=== PATIENT | female | born 1990 | race Caucasian/White ===

== ENCOUNTER 2017-04-06 15:12 | Emergency (ER) | payer SELFPAY ==
[~2017-04-06] VITALS: Ht 149.9 cm; Wt 38.6 kg
[~2017-04-06 15:12] MED LIST: ATIVAN0.5 MG PO; CLONAZEPAM0.5 MG PO; FLEXERIL10 MG PO; NORCO 325 MG-51 TA1 PO; NORCO 325 MG-51 TAB PO; PRENATAL1 TA1 PO; PROZAC20 MG PO; SEROQUEL100 MG PO; ULTRAM 50MG TAB50 MG PO; ZOFRAN ODT4 MG PO; ZOFRAN4 M1 PO; ZOLOFT PO
[2017-04-06] MEDS ORDERED: ZOFRAN ODT4 MG PO (22:01)
[2017-04-06] MEDS ORDERED: FLOMAX0.4 MG PO (22:01)
[2017-04-06] MEDS ORDERED: PERCOCET 325 MG1 TA2 PO (22:01)
[2017-04-06] MEDS ORDERED: SEPTRA DS 8001 TAB PO (22:01)
[2017-04-06 22:15] VITALS: BP 111/68
== END 2017-04-06 22:15 | disposition home or self-care (01) ==
LOC: ED 15:12
DX: N13.2 Hydronephrosis with renal and ureteral calculous obstruction (principal); Z87.442 Personal history of urinary calculi
CPT/HCPCS: J1885; J2060; J2405; J3010; J7030; Q9967

== ENCOUNTER 2017-07-06 07:11 | Emergency (ER) | payer SELFPAY ==
[~2017-07-06] VITALS: Ht 149.9 cm; Wt 40.9 kg
[~2017-07-06 07:11] MED LIST changes: +FLOMAX0.4 MG PO; +PERCOCET 325 MG1 TA2 PO; +SEPTRA DS 8001 TAB PO
[2017-07-06 07:45] LABS: EOS # 0.1 (0.04-0.40); EOS % 1.5 % (1.0-5.0); HEMATOCRIT 40.4 % (37.0-47.0); HEMOGLOBIN 13.3 g/dL (12.5-16.0); MEAN CELL VOLUME 88 fl (78-100); MEAN CORPUSCULAR HEMOGLOBIN 29 pg (27-31); MEAN CORPUSCULAR HGB CONC 33 g/dL (33-37); MEAN PLATELET VOLUME 9.9 fl (7.4-10.4); MONO # 0.4 (0.20-0.80); NEU # 3.8 (1.40-6.50); PLATELET COUNT 231 K/mm3 (130-400); RED BLOOD COUNT 4.57 M/mm3 (4.10-5.30); RED CELL DISTRIBUTION WIDTH 13.1 % (11.5-14.5); WHITE BLOOD COUNT 5.4 K/mm3 (4.8-10.8)
[2017-07-06 07:55] LABS: URINE APPEARANCE HAZY; URINE BILIRUBIN NEGATIVE (NEGATIVE); URINE BLOOD TRACE (NEGATIVE); URINE COLOR YELLOW; URINE GLUCOSE NEGATIVE (NEGATIVE); URINE KETONE NEGATIVE (NEGATIVE); URINE LEUKOCYTE ESTERASE NEGATIVE (NEGATIVE); URINE MUCUS PRESENT (NOT PRESENT); URINE NITRATE NEGATIVE (NEGATIVE); URINE PROTEIN(semi-quant) NEGATIVE (NEGATIVE); URINE UROBILINOGEN NORMAL (NORMAL)
[2017-07-06 08:02] LABS: ALBUMIN 3.8 g/dL (3.5-5.0); BUN/CREATININE RATIO 19.5 (6.0-26.0); POTASSIUM 3.6 mmol/L (3.6-5.0); TOTAL BILIRUBIN 0.6 mg/dL (0.2-1.3); TOTAL PROTEIN 6.9 g/dL (6.3-8.2)
[2017-07-06] MEDS ORDERED: ZOFRAN ODT4 MG PO (09:05)
[2017-07-06 09:24] VITALS: BP 102/55
== END 2017-07-06 09:11 | disposition home or self-care (01) ==
LOC: ED 07:11
PROVIDERS: Physician Assistant
DX: O20.9 Hemorrhage in early pregnancy, unspecified (principal); O26.21 Pregnancy care for patient with recurrent pregnancy loss, first trimester; R10.84 Generalized abdominal pain; Z3A.01 Less than 8 weeks gestation of pregnancy; Z88.0 Allergy status to penicillin

== ENCOUNTER 2017-08-19 11:12 | Emergency (ER) | payer SELFPAY ==
[~2017-08-19] VITALS: Ht 149.9 cm; Wt 40.9 kg
[2017-08-19] MEDS ORDERED: VITAFOL-OB+DHA1 KIT PO (11:20)
[2017-08-19 11:56] LABS: HEMATOCRIT 40.1 % (37.0-47.0); HEMOGLOBIN 13.1 g/dL (12.5-16.0); MEAN CELL VOLUME 88 fl (78-100); MEAN CORPUSCULAR HEMOGLOBIN 29 pg (27-31); MEAN CORPUSCULAR HGB CONC 33 g/dL (33-37); MEAN PLATELET VOLUME 10.4 fl (7.4-10.4); PLATELET COUNT 213 K/mm3 (130-400); RED BLOOD COUNT 4.56 M/mm3 (4.10-5.30); RED CELL DISTRIBUTION WIDTH 12.9 % (11.5-14.5); WHITE BLOOD COUNT 11.1 K/mm3 (4.8-10.8)
[2017-08-19 12:08] LABS: ALBUMIN 4.1 g/dL (3.5-5.0); BUN/CREATININE RATIO 9.7 (6.0-26.0); POTASSIUM 3.7 mmol/L (3.6-5.0); TOTAL BILIRUBIN 0.3 mg/dL (0.2-1.3); TOTAL PROTEIN 7.6 g/dL (6.3-8.2)
[2017-08-19 12:25] LABS: BAND 10 % (0-10); LYMPHOCYTE 6 % (20-51); MONOCYTE 4 % (3-10); NEUTROPHILS 77 % (42-75)
[2017-08-19 12:25] LABS: URINE APPEARANCE BLOODY; URINE COLOR BLOODY
[2017-08-19 12:26] LABS: URINE BILIRUBIN NEGATIVE (NEGATIVE); URINE BLOOD 250 ery/uL (NEGATIVE); URINE GLUCOSE NEGATIVE (NEGATIVE); URINE KETONE NEGATIVE (NEGATIVE); URINE LEUKOCYTE ESTERASE NEGATIVE (NEGATIVE); URINE NITRATE NEGATIVE (NEGATIVE); URINE PROTEIN(semi-quant) 3+ mg/dL (NEGATIVE); URINE UROBILINOGEN NORMAL (NORMAL)
[2017-08-19 13:39] VITALS: BP 99/60
== END 2017-08-19 13:15 | disposition short-term general hospital (02) ==
LOC: ED 11:12
PROVIDERS: Physician Assistant
DX: O20.0 Threatened abortion (principal); Z3A.13 13 weeks gestation of pregnancy; O26.21 Pregnancy care for patient with recurrent pregnancy loss, first trimester; Z88.0 Allergy status to penicillin
CPT/HCPCS: J2765; J7120

== ENCOUNTER → 2017-10-19 | Outpatient (CLI) | payer MEDICAID ==
[~2017-10-19] VITALS: Ht 149.9 cm; Wt 38.6 kg
[~2017-10-19] MED LIST changes: +VITAFOL-OB+DHA1 KIT PO
[2017-10-19 10:37] VITALS: BP 123/75
== END ==
LOC: AMSURD 08:39
DX: R07.9 Chest pain, unspecified (principal); Z88.5 Allergy status to narcotic agent; Z88.0 Allergy status to penicillin

== ENCOUNTER 2017-10-31 22:57 | Emergency (ER) | payer MEDICAID ==
[~2017-10-31] VITALS: Ht 149.9 cm; Wt 37.7 kg
[2017-11-01] MEDS ORDERED: PROZAC20 M1 PO (00:14)
[2017-11-01 00:18] VITALS: BP 124/81
== END 2017-11-01 00:18 | disposition home or self-care (01) ==
LOC: ED 22:57
DX: F41.9 Anxiety disorder, unspecified (principal); F32.9 Major depressive disorder, single episode, unspecified

== ENCOUNTER 2017-11-01 02:10 | Emergency (ER) | payer MEDICAID ==
[~2017-11-01] VITALS: Ht 149.9 cm; Wt 37.7 kg
[~2017-11-01 02:10] MED LIST changes: +PROZAC20 M1 PO
[2017-11-01 03:25] LABS: HEMATOCRIT 39.1 % (37.0-47.0); MEAN CELL VOLUME 87 fl (78-100); MEAN CORPUSCULAR HEMOGLOBIN 29 pg (27-31); MEAN CORPUSCULAR HGB CONC 33 g/dL (33-37); MEAN PLATELET VOLUME 10.5 fl (7.4-10.4); PLATELET COUNT 273 K/mm3 (130-400); RED BLOOD COUNT 4.48 M/mm3 (4.10-5.30); RED CELL DISTRIBUTION WIDTH 12.8 % (11.5-14.5); WHITE BLOOD COUNT 9.4 K/mm3 (4.8-10.8)
[2017-11-01 03:56] LABS: LYMPHOCYTE 6 % (20-51); MONOCYTE 4 % (3-10); NEUTROPHILS 90 % (42-75)
[2017-11-01 03:57] LABS: ALBUMIN 4.2 g/dL (3.5-5.0); ALT/SGPT 26 U/L (9-52); AST-SGOT 22 U/L (14-36); BUN/CREATININE RATIO 21.2 (6.0-26.0); CALCIUM 9.4 mg/dL (8.4-10.2); CARBON DIOXIDE 27 mmol/L (22-30); GLUCOSE 90 mg/dL (65-105); POTASSIUM 3.6 mmol/L (3.6-5.0); SODIUM 141 mmol/L (137-145); TOTAL BILIRUBIN 0.3 mg/dL (0.2-1.3); TOTAL PROTEIN 7.7 g/dL (6.3-8.2)
[2017-11-01 04:10] LABS: ACETAMINOPHEN < 4 ug/mL (10-30); ALCOHOL IN-HOUSE < 10 mg/dL
[2017-11-01 11:00] VITALS: BP 109/77
== END 2017-11-01 11:00 | disposition home or self-care (01) ==
LOC: ED 02:10
PROVIDERS: Nurse Practitioner Primary Care
DX: T45.0X2A Poisoning by antiallergic and antiemetic drugs, intentional self-harm, initial encounter (principal); F32.9 Major depressive disorder, single episode, unspecified; Z88.0 Allergy status to penicillin; Z32.00 Encounter for pregnancy test, result unknown

== ENCOUNTER → 2017-11-03 | Outpatient (CLI) | payer MEDICAID ==
[2017-11-01 11:00] VITALS: BP 109/77
== END ==
LOC: LAB 08:36
DX: Z01.89 Encounter for other specified special examinations (principal)

== ENCOUNTER 2017-12-02 23:30 | Emergency (ER) | payer MEDICAID ==
[~2017-12-02] VITALS: Ht 149.9 cm; Wt 37.7 kg
[2017-12-03] MEDS ORDERED: PROZAC20 M1 PO (00:51)
[2017-12-03 00:57] VITALS: BP 120/85
== END 2017-12-03 00:57 | disposition home or self-care (01) ==
LOC: ED 23:30
DX: S51.812A Laceration without foreign body of left forearm, initial encounter (principal); X78.1XXA Intentional self-harm by knife, initial encounter; Z91.5 Personal history of self-harm; F32.9 Major depressive disorder, single episode, unspecified; Z23 Encounter for immunization; F43.9 Reaction to severe stress, unspecified
CPT/HCPCS: 90715